=== PATIENT | male | born 1985 ===

== ENCOUNTER 2020-09-16 12:32 | Emergency (ER) | payer MEDICAID, OTHER ==
[~2020-09-16] VITALS: Ht 180 cm; Wt 100.0 kg
[2020-09-16] MEDS ORDERED: ORPHENADRINE 60 MG/2 ML (NORFLEX) AMP (ED ONLY) IM STA (12:43)
[2020-09-16] MEDS ORDERED: KETOROLAC 30 MG/ML VIAL IM STA (12:43)
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
[2020-09-16 13:10] LABS: BASOPHILS % (AUTO) 0 % (0-10); EOSINOPHILS % (AUTO) 0 % (0-10); HEMATOCRIT 45 % (40-54); HEMOGLOBIN 15.3 G/DL (13.3-17.7); LYMPHOCYTES % (AUTO) 4 % (12-44); MEAN CORPUSCULAR HEMOGLOBIN 30 PG (25-34); MEAN CORPUSCULAR HGB CONC 34 G/DL (32-36); MEAN CORPUSCULAR VOLUME 89 FL (80-99); MEAN PLATELET VOLUME 8.9 FL (7.4-10.4); MONOCYTES % (AUTO) 7 % (0-12); NEUTROPHILS % (AUTO) 89 % (42-75); PLATELET COUNT 297 10^3/uL (130-400); WHITE BLOOD COUNT 18.9 10^3/uL (4.3-11.0)
[2020-09-16 13:11] LABS: BASOPHILS # (AUTO) 0.1 10^3/uL (0.0-0.1); LYMPHOCYTES # (AUTO) 0.7 X 10^3 (1.0-4.0); MONOCYTES # (AUTO) 1.2 X 10^3 (0.0-1.0); NEUTROPHILS # (AUTO) 16.9 X 10^3 (1.8-7.8)
[2020-09-16 13:12] LABS: BACTERIA,URINE NEGATIVE /HPF; BILIRUBIN,URINE NEGATIVE (NEGATIVE); CLARITY,URINE CLEAR; COLOR,URINE YELLOW; GLUCOSE, URINE (UA) NEGATIVE (NEGATIVE); KETONES,URINE NEGATIVE (NEGATIVE); LEUKOCYTE ESTERASE ,URINE NEGATIVE (NEGATIVE); NITRITE,URINE NEGATIVE (NEGATIVE); PROTEIN,URINE NEGATIVE (NEGATIVE); SQUAMOUS EPITHELIAL CELL,UR RARE /HPF; WBC,URINE RARE /HPF
[2020-09-16 13:14] LABS: AMPHETAMINE SCREEN, URINE NEGATIVE (NEGATIVE); BARBITURATE SCREEN URINE NEGATIVE (NEGATIVE); BENZODIAZEPINES SCREEN URINE NEGATIVE (NEGATIVE); CANNABINOID SCREEN, URINE NEGATIVE (NEGATIVE); COCAINE SCREEN URINE NEGATIVE (NEGATIVE); METHADONE STAT NEGATIVE (NEGATIVE); METHAMPHETAMINE SCREEN URINE S NEGATIVE (NEGATIVE); OPIATE SCREEN URINE NEGATIVE (NEGATIVE); OXYCODONE STAT NEGATIVE (NEGATIVE); PROPOXYPHENE STAT POSITIVE (NEGATIVE); TRICYCLIC ANTIDEPRESSANTS SCRE NEGATIVE (NEGATIVE)
[2020-09-16 13:27] LABS: CARBON DIOXIDE 25 MMOL/L (21-32); CHLORIDE 99 MMOL/L (98-107); POTASSIUM 4.4 MMOL/L (3.6-5.0); SODIUM 135 MMOL/L (135-145)
[2020-09-16 13:28] LABS: ALANINE AMINOTRANSFERASE 12 U/L (0-55); ALBUMIN 4.4 GM/DL (3.2-4.5); ALKALINE PHOSPHATASE 78 U/L (40-136); BAND NEUTROPHILS 2 %; BILIRUBIN,TOTAL 0.6 MG/DL (0.1-1.0); BUN/CREATININE RATIO 13; CALCIUM 9.5 MG/DL (8.5-10.1); CREATININE SERUM 1.06 MG/DL (0.60-1.30); GFR ESTIMATED > 60; GLUCOSE 107 MG/DL (70-105); LYMPHOCYTES % (MANUAL) 4 %; MONOCYTES % (MANUAL) 5 %; NEUTROPHILS % (MANUAL) 89 %; TOTAL PROTEIN 7.5 GM/DL (6.4-8.2)
[2020-09-16 13:29] LABS: BASOPHILS % (MANUAL) 0 %; EOSINOPHILS % (MANUAL) 0 %
--- NOTE | 2020-09-16 13:31 | Diagnostic Imaging Report ---
INDICATION: Pain FINDINGS: A single partially threaded cannulated screw seen transfixing the lower SI joints across the sacrum. There are chronic post traumatic changes to the medial aspect of the right obturator ring. Proximal femurs are intact. No acute fracture or dislocation. IMPRESSION: Posttraumatic postsurgical changes in the pelvis as described, otherwise unremarkable. Dictated by: Dictated on workstation # [id number]
[2020-09-16 13:42] VITALS: BP 134/68
[2020-09-16] MEDS ORDERED: NAPR-1071 PO (13:46)
[2020-09-16] MEDS ORDERED: CEPH500T PO (13:46)
[2020-09-16] MEDS ORDERED: CYCL10TA9 PO (13:46)
== END 2020-09-16 13:48 | disposition home or self-care (01) ==
LOC: ER FS 12:35
DX: G89.29 Other chronic pain (principal); M79.605 Pain in left leg; M54.5 Low back pain; D72.829 Elevated white blood cell count, unspecified
CPT/HCPCS: 36415; 72170; 80053; 80306; 81000; 85007; 85027

== ENCOUNTER 2020-09-20 09:59 | Emergency (ER) | payer MEDICAID ==
[~2020-09-20] VITALS: Ht 180 cm; Wt 96.6 kg
[~2020-09-20 09:59] MED LIST: CEPH500T PO; CYCL10TA9 PO; NAPR-1071 PO
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
[2020-09-20 11:09] LABS: BASOPHILS % (AUTO) 0 % (0-10); EOSINOPHILS # (AUTO) 0.2 10^3/uL (0.0-0.3); EOSINOPHILS % (AUTO) 1 % (0-10); HEMATOCRIT 44 % (40-54); HEMOGLOBIN 14.6 g/dL (13.3-17.7); LYMPHOCYTES # (AUTO) 0.9 10^3/uL (1.0-4.0); LYMPHOCYTES % (AUTO) 9 % (12-44); MEAN CORPUSCULAR HEMOGLOBIN 30 pg (25-34); MEAN CORPUSCULAR HGB CONC 34 g/dL (32-36); MEAN CORPUSCULAR VOLUME 91 fL (80-99); MEAN PLATELET VOLUME 9.2 fL (9.0-12.2); MONOCYTES % (AUTO) 10 % (0-12); NEUTROPHILS # (AUTO) 8.2 10^3/uL (1.8-7.8); NEUTROPHILS % (AUTO) 79 % (42-75); PLATELET COUNT 286 10^3/uL (130-400); WHITE BLOOD COUNT 10.4 10^3/uL (4.3-11.0)
[2020-09-20 11:20] LABS: ALBUMIN 3.7 GM/DL (3.2-4.5); CHLORIDE 104 MMOL/L (98-107); POTASSIUM 4.8 MMOL/L (3.6-5.0); SODIUM 138 MMOL/L (135-145)
[2020-09-20 11:21] LABS: CALCIUM 9.5 MG/DL (8.5-10.1)
[2020-09-20 11:22] LABS: GLUCOSE 93 MG/DL (70-105); TOTAL PROTEIN 7.7 GM/DL (6.4-8.2)
[2020-09-20 11:24] LABS: BILIRUBIN,TOTAL 0.4 MG/DL (0.1-1.0); CARBON DIOXIDE 24 MMOL/L (21-32)
[2020-09-20 11:26] LABS: ALKALINE PHOSPHATASE 144 U/L (40-136); CREATININE SERUM 0.88 MG/DL (0.60-1.30); GFR ESTIMATED > 60
[2020-09-20 11:27] LABS: BUN/CREATININE RATIO 16
[2020-09-20 11:29] LABS: ALANINE AMINOTRANSFERASE 184 U/L (0-55)
[2020-09-20] MEDS ORDERED: fentaNYL INJECTION 100 MCG/2 ML AMP IVP ONE ×3 (11:45→19:30)
[2020-09-20] MEDS ORDERED: LACTATED RINGERS 1,000 ML IV ONE ×2 (11:45→12:00)
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
[2020-09-20] MEDS ORDERED: VANCOMYCIN INJECTION 1,000 MG in NS (IVPB) 250 ML IV SCH (12:00)
[2020-09-20] MEDS ORDERED: IOHEXOL 350 MG/ML 100 ML (OMNIPAQUE 350) VIAL IV ONE (12:00)
[2020-09-20] MEDS ORDERED: NS 100 ML (IVPB) BAG IV ONE (12:00)
[2020-09-20] MEDS ORDERED: CEFEPIME INJECTION 1,000 MG in WATER (STERILE) FOR INJECTION 10 ML IV ONE (12:00)
[2020-09-20] MEDS ORDERED: HOLD METFORMIN - RECEIVED CONTRAST 20 ML VIAL IV SCH (12:00)
[2020-09-20 12:11] LABS: PROTHROMBIN TIME PATIENT 13.6 SEC (12.2-14.7)
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
[2020-09-20] MEDS ORDERED: VANCOMYCIN 2000 MG/NS 500 ML IVPB IV ONE ×2 (12:45)
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
[2020-09-20 13:06] LABS: BILIRUBIN,URINE NEGATIVE (NEGATIVE); CLARITY,URINE CLEAR; COLOR,URINE YELLOW; GLUCOSE, URINE (UA) NEGATIVE (NEGATIVE); KETONES,URINE NEGATIVE (NEGATIVE); LEUKOCYTE ESTERASE ,URINE NEGATIVE (NEGATIVE); NITRITE,URINE NEGATIVE (NEGATIVE); PH,URINE 6.5 (5-9); PROTEIN,URINE TRACE (NEGATIVE)
[2020-09-20 13:15] LABS: AMORPHOUS SEDIMENT,UR FEW AMOR URATES /LPF; BACTERIA,URINE NEGATIVE /HPF; WBC,URINE 0-2 /HPF
[2020-09-20] MEDS ORDERED: HYDROcodone/APAP 5 MG/325 MG (LORTAB) TAB PO ONE ×2 (14:00→18:00)
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
[2020-09-20] MEDS ORDERED: IBUPROFEN 800 MG (MOTRIN) TAB PO ONE (18:00)
--- NOTE | 2020-09-20 19:00 | NUR ---
RECIEVED REPORT FROM CASSIE GROVE TO ASSUME CARE OF AT THIS TIME.
[2020-09-20] MEDS ORDERED: LIDOCAINE 1% INJ 20 ML 20 ML VIAL ONE (20:11)
--- NOTE | 2020-09-20 20:30 | NUR ---
CONTACTED [facility] CARPENTERSLOYDA EDOUARD, REQUESTING PT TRANSFER TO [facility]. LOYDA REPORTS NO TRUCK AVAILABILITY UNTIL TOMORROW MORNING AFTER SHIFT CHANGE. PROVIDER NOTIFIED.
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
--- NOTE | 2020-09-20 20:45 | NUR ---
CONTACTED [facility] FIELD SCOUTLOYDA EDOUARD, REPORTING NO LONGER NEEDING [facility] TRANSPORT.
--- NOTE | 2020-09-20 20:57 | NUR ---
MICHAEL ROTHMAN, IN ROOM PERFORMING LUMBAR PUNCTURE AT THIS TIME. ACCOMPANIED BY MEDICAL STUDENT.
--- NOTE | 2020-09-20 21:19 | NUR ---
CSF FLUID OBTAINED FROM LUMBAR PUNCTURE WALKED TO LAB BY STEVEN LIND.
--- NOTE | 2020-09-20 21:30 | NUR ---
CONTACTED LISTED EMS AGENCIES REQUESTING PT TRANSFER TO [facility]. ALL LISTED AGENCIES DECLINED TRANSFER. [facility]
--- NOTE | 2020-09-20 21:35 | Anesthesia-Procedure Note ---
Procedures/Interventions Procedure Start/Stop/Diagnosis Date of Procedure: Sep 20, 2020 Start Time: 20:45 Referring Physician: Yazmin Preprocedural Diagnosis: Left leg weakness Brief History Called by retail warehouse supervisor for LP in ER at request of Dr. Arce who attempted previously without success. Chart reviewed and hx obtained from ER physician. Pt was sitting up in bed, procedure explained as well as risks/benefits. Consent obtained. Pt position in the R lateral decubitus. Betadine prep x3 with sterile drape to back. #22g pencil point needle inserted x1 attempt at aprox L3-4. Clear CSF returned. Opening pressure [id number]. 4 samples taken and placed in sterile tubes with aprox 2cc in each tube. Pt tolerated procedure well, needle withdrawn and band aid applied. Advised pt to lay supine for at leaset 30-60 min post procedure. Report to RN. Stop Time: 21:20 Postprocedural Diagnosis: Lef leg weakness Lumbar Puncture Discussed Risk,Benefits: Yes Patient Consents: Yes Position: Lying, L3-4, Right Opening Pressure: 24 Fluid Color: clear Spinal Needle Used: 22g Jose Francisco 3 1/2 inch MICHAEL MARSHALL CRNA Sep 20, 2020 21:35
--- NOTE | 2020-09-20 21:48 | NUR ---
CONTACTED PT MOTHER, PATY, REGARDING PT UPDATE.
[2020-09-20 21:52] LABS: CSF TOTAL PROTEIN 25 MG/DL (15-40)
[2020-09-20 21:53] LABS: APPEARANCE,CSF CLEAR; COLOR,CSF COLORLESS
[2020-09-20 21:54] LABS: CSF TUBE NUMBER 4; RED BLOOD CELL,CSF 19 CELLS (0-0); WHITE BLOOD CELL,CSF 2 CELLS (0-5)
[2020-09-20 21:55] LABS: CSF GLUCOSE 51 MG/DL (50-80)
--- NOTE | 2020-09-20 22:30 | NUR ---
CONTACTED PT MOTHER, PATY, REGARDING PT UPDATE.
--- NOTE | 2020-09-20 22:37 | NUR ---
[facility] CALLED REPORTING THEY ARE UNABLE TO HOLD BED ASSIGNMENT D/T LENGTH OF DELAY IN TRANSPORT. PROVIDER NOTIFIED.
[2020-09-21] MEDS ORDERED: VANCOMYCIN INJECTION 1,000 MG in NS (IVPB) 250 ML IV SCH (01:45)
[2020-09-21] MEDS ORDERED: CEFEPIME INJECTION 1,000 MG in WATER (STERILE) FOR INJECTION 10 ML IV ONE (01:45)
[2020-09-21] MEDS ORDERED: VANCOMYCIN 1000 MG/VIAL ONE (02:13)
[2020-09-21] MEDS ORDERED: NS (IVPB) 250 ML ONE (02:13)
[2020-09-21] MEDS ORDERED: HYDROcodone/APAP 5 MG/325 MG (LORTAB) TAB PO ONE ×2 (04:00→08:45)
[2020-09-21] MEDS ORDERED: IBUPROFEN TABLET 200 MG TAB PO ONE (04:00)
--- NOTE | 2020-09-21 04:00 | NUR ---
CONTACTED [facility] TRANSFER LINE WHO REPORT NO BED AVAILABILITY AT THIS TIME. PROVIDER NOTIFIFED.
--- NOTE | 2020-09-21 05:55 | NUR ---
PT REPORT CALLED TO CASSIE ARCEO FROM [facility]. ADIS VOICES NO FURTHER QUESTIONS REGARDING ER-ER TRANSFER.
[2020-09-21] MEDS ORDERED: ORPHENADRINE 60 MG/2 ML (NORFLEX) AMP (ED ONLY) IV ONE (06:15)
--- NOTE | 2020-09-21 06:15 | NUR ---
CONTACTED MOTHER, PATY, REGARDING PT UPDATE ET TRANSFER TO [facility] PATY VOICES NO QUESTIONS OR CONCERNS.
--- NOTE | 2020-09-21 07:20 | NUR ---
food tray ordered
--- NOTE | 2020-09-21 08:18 | NUR ---
food tray given
--- NOTE | 2020-09-21 08:18 | NUR ---
CON'T TO WAIT FOR [facility] FOR TRANSFER FOR [facility]
[2020-09-21 08:31] VITALS: BP 116/68
--- NOTE | 2020-09-21 08:31 | NUR ---
EMS HERE FOR TRANSFER
== END 2020-09-21 08:39 | disposition short-term general hospital (02) ==
LOC: EDUNIT# 09:59 → ER 10:02
DX: R53.1 Weakness (principal); R50.9 Fever, unspecified; R10.84 Generalized abdominal pain; R79.82 Elevated C-reactive protein (CRP); F17.200 Nicotine dependence, unspecified, uncomplicated; Z87.820 Personal history of traumatic brain injury; Z20.822 Contact with and (suspected) exposure to COVID-19
CPT/HCPCS: 36415; 70450; 71260; 72125; 72141; 72146; 72148; 74177; 80053; 81000; 82550; 82945; 83605; 84157; 84484; 85025; 85610; 85652; 85730; 86141; 87040; 87070; 87088; 87205; 87252; 87635; 87804; 89051; 93005

== ENCOUNTER 2020-11-08 09:39 | Outpatient (CLI) | payer MEDICAID ==
[~2020-11-08] VITALS: Ht 177.8 cm; Wt 98.1 kg
[2020-11-08 09:45] VITALS: BP 114/82
== END 2020-11-08 10:05 | disposition home or self-care (01) ==
LOC: SDC 09:39
PROVIDERS: ATTEND Nurse Practitioner Family
DX: A49.02 Methicillin resistant Staphylococcus aureus infection, unspecified site (principal)